=== PATIENT | male | born 1980 | race Caucasian/White ===

== ENCOUNTER 2020-01-25 18:06 | Emergency (ER) | payer SELFPAY ==
[~2020-01-25] VITALS: Ht 167.6 cm; Wt 81.6 kg
[2020-01-25] MEDS ORDERED: SODIUM CHLORIDE 0.9% 1000ML 1,000 ML ONE ×2 (18:25→20:08)
[2020-01-25] MEDS ORDERED: KETOROLAC TROMETHAMINE 30 MG/ML VIAL ONE (18:25)
[2020-01-25] MEDS ORDERED: ONDANSETRON HCL INJ 2MG/ML 2ML 2 MG/ML VIAL ONE ×4 (18:25→18:26)
--- NOTE | 2020-01-25 18:39 | Emergency Department Note ---
History of Present Illnes History of Present Illness Chief Complaint: flank pain History of Present Illness This is a 39 year old male, with a history of untreated hypertension, who prese nts with the onset of left back and left flank pain that started approximately 2:30 PM this afternoon, while patient was at work. Patient has also noted some hesitancy upon urination, and urinary frequency. He denies any dysuria or hematuria. He describes the pain as sharp, stabbing, and it was initially intermittent, but it has now become constant. Upon arrival to the ER. pt was h aving difficulty getting comfortable. He denies any fever or chills. His last dose of Tylenol was this afternoon. He has had no known sick contacts, no known contact with patients who have been diagnosed with Covid 19. Historian: Patient, Family Member (here with sisterjack, director of Med/Surg at [facility].) Arrival Mode: Car History limited by: condition of the patient Hay Sorter Required: No Onset (how long ago): hour(s) (3.5) Location: left back, radiating to the left flank; Radiation: Reports flank Context: Denies recent illness, Denies new medications Relieving factors: none Exacerbating factors: none Associated symptoms: Reports nausea/vomiting (nausea, without vomiting.); Denies confusion, Denies fever/chills, Denies loss of appetite, Denies shortness of breath, Denies weakness Treatments prior to arrival: none Risk factors: obseity, Past Medical/Family History Physician Review I have reviewed the patient's past medical and family history. Any updates have been documented here. Past Medical History Recent Fever: No Clinical Suspicion of Infectio: No New/Unexplained Change in Ment: No Past Medical History: Hypertension (not currently on any meds.) Past Surgical History: None Social History Smoking Cessation: Current every day smoker (1 ppd x 20 years;) Counseling Performed: Yes Any Illegal Drug Use: Yes (marijuana) TB Exposure/Symptoms: No Family History Family history of heart diseas: No Other Any Pre-Existing Lines (PICC,: No Is patient up to date on immun: No Review of Systems Review of Systems Constitutional: Denies chills, Denies fever Cardiovascular: Denies chest pain, Denies palpitations Respiratory: Reports no symptoms Gastrointestinal: Reports abdominal pain, Reports nausea; Denies diarrhea, Denies vomiting Genitourinary: Reports discharge Musculoskeletal: Reports back pain (left sided); Denies joint swelling, Denies muscle stiffness, Denies neck pain Integumentary: Denies change in color, Denies rash Neurological: Denies headache, Denies paresthesia Psychological: Reports no symptoms Endocrine: Reports no symptoms Hematological/Lymphatic: Reports no symptoms Review of other systems: All other systems negative Physical Exam Related Data Allergies: Coded Allergies: No Known Allergies (Unverified , 01/25/20) Vital signs reviewed: Yes Physical Exam CONSTITUTIONAL Constitutional: Present well-developed, Present well-nourished, Present obese, Present ill appearing HENT HENT: Present normocephalic, Present atraumatic, Present oropharynx clear/moist, Present nose normal HENT L/R: Present left ext ear normal, Present right ext ear normal EYES Eyes: Reports PERRL, Reports conjunctivae normal NECK Neck: Present ROM normal; Absent cervical adenopathy PULMONARY Pulmonary: Present effort normal, Present breath sounds normal CARDIOVASCULAR Cardiovascular: Present regular rhythm, Present heart sounds normal, Present capillary refill normal, Present normal rate GASTROINTESTINAL Abdominal: Present soft, Present nontender, Present bowel sounds normal; Absent left CVA tenderness GENITOURINARY Genitourinary: Present exam deferred SKIN Skin: Present warm, Present dry MUSCULOSKELETAL Musculoskeletal: Present ROM normal; Absent edema NEUROLOGICAL Neurological: Present alert, Present oriented x 3, Present no gross motor or sensory deficits PSYCHOLOGICAL Psychological: Present mood/affect normal, Present judgement normal Results Laboratory Laboratory CMP - nl except for K+ = 3.2, CL = 95, ALT/AST = 57/66 ; CBC - nl except for WBC = 10.7, H/H = 19.5/58.3; UA - trace blood; Lab results reviewed: Yes Imaging Imaging results reviewed: Yes Impressions [place] [address] Patient Name: TOMA BLOOM MR #: [id number] : 1980 Age/Sex: 39/M Req #: [id number] Adm Physician: Ordered by: JUSTIN STALLWORTH MD Report #: [id number] Location: [facility] Room/Bed: __ Procedure: [id number] HOPD/CT ABD/PEL WO CONTRAST-HOPD Exam Date: 01/25/20 Exam Time: 1915 REPORT STATUS: Signed EXAM: CT Abdomen and Pelvis WITHOUT contrast INDICATION: ^left flank pain ^20200125 ^1915 COMPARISON: None. TECHNIQUE: Abdomen and pelvis were scanned utilizing a multidetector helical scanner from the lung base to the pubic symphysis without administration of IV contrast. Absence of intravenous contrast decreases sensitivity for detection of focal lesions and vascular pathology. Coronal and sagittal reformations were obtained. Stone protocol is performed. IV CONTRAST: None ORAL CONTRAST: None COMPLICATIONS: None RADIATION DOSE: Total DLP: 1138 mGy*cm Estimated effective dose: (DLP x 0.015 x size factor) mSv CTDIvol has been reviewed. It is below the limits set by the Radiation Protocol Committee (RPC). Dose modulation, iterative reconstruction, and/or weight based adjustment of the mA/kV was utilized to reduce the radiation dose to as low as reasonably achievable. FINDINGS: LINES and TUBES: None. LOWER THORAX: Unremarkable HEPATOBILIARY: No focal hepatic lesions. No biliary ductal dilation. GALLBLADDER: Single calcified gallstone. No wall thickening. SPLEEN: No splenomegaly. PANCREAS: No focal masses or ductal dilatation. ADRENALS: No adrenal nodules KIDNEYS/URETERS: 6 mm stone within the left distal ureter just proximal to the UVJ. Mild left hydroureteronephrosis. Mild left perinephric inflammation. 2 cm right renal exophytic cyst. 2 cm right renal lower pole cortical cyst. No right renal calculus. GI TRACT: No abnormal distention, wall thickening, or evidence of bowel obstruction. Appendix is normal. PELVIC ORGANS/BLADDER: Unremarkable. LYMPH NODES: No lymphadenopathy. VESSELS: Unremarkable. PERITONEUM / RETROPERITONEUM: No free air or fluid. BONES: Unremarkable. SOFT TISSUES: Unremarkable. IMPRESSION: 1. A 6 mm left distal ureteral stone results in mild left hydroureteronephrosis and mild left perinephric inflammation. 2. Cholelithiasis. Signed by: Shona Frankel MD on 01/25/2020 7:51 PM Dictated By: SHONA FRANKEL MD 50 Transcribed By: MARY on 01/25/201950 COPY TO: JUSTIN STALLWORTH MD~ Diagnostics Tests Diagnostic test(s) reviewed: Yes Assessment & Plan Medical Decision Making MDM Drink at least 1 GALLON of WATER per day (128 oz) for the next several days, until the kidney stone passes. Strain the urine, every time you urinate, in an attempt to capture the stone. Take medications, as prescribed. Return to the ED, if you develop vomiting with inability to keep medications down, high fever, or intractable abdominal pain. Contact Urology, tomorrow, for a follow-up appointment this week, regarding the kidney stone and swollen left kidney. Take the stone with you, if you are able to retrieve it. Work on smoking cessation, and establish with a PCP, for further evaluation and management of any health issues, including uncontrolled hypertension, elevated red blood cell count (polycythemia) and elevated liver enzymes. Assessment & Plan Final Impression: (1) Nephrolithiasis (2) Hydronephrosis of left kidney (3) Left flank pain (4) Uncontrolled hypertension (5) Elevated liver function tests (6) Polycythemia (7) Nicotine dependence Depart Disposition: HOME, SELF-halfway Meds Active Scripts Acetaminophen With Codeine (TYLENOL WITH CODEINE #3 TABLET) 1 Each Tablet, 1-2 TAB PO Q6H PRN for pain, #20 TAB 0 Refills Prov:JUSTIN STALLWORTH MD 01/25/20 Promethazine Hcl (PROMETHAZINE HCL) 25 Mg Tablet, 25 MG PO Q6H PRN for nausea and vomiting, #20 TAB 0 Refills Prov:JUSTIN STALLWORTH MD 01/25/20 Ketorolac Tromethamine (TORADOL) 10 Mg Tablet, 1 TAB PO Q6H for pain for 5 Days, #20 TAB 0 Refills DO NOT take for more than 5 days. Prov:JUSTIN STALLWORTH MD 01/25/20 Tamsulosin Hcl* (FLOMAX*) 0.4 Mg Cap, 1 TAB PO DAILY for to help pass kidney stone, #30 CAP 0 Refills Prov:JUSTIN STALLWORTH MD 01/25/20 Ciprofloxacin Hcl (CIPRO) 500 Mg Tablet, 1 TAB PO BID for infection for 10 Days, #20 TAB 0 Refills Prov:JUSTIN STALLWORTH MD 01/25/20 Medications in the ED Ondansetron HCl 4 mg STK-MED ONCE .ROUTE ; Start 01/25/20 at 18:25; Stop 01/25/20 at 18:20; Status DC Ketorolac Tromethamine 30 mg STK-MED ONCE .ROUTE ; Start 01/25/20 at 18:25; Stop 01/25/20 at 18:20; Status DC Sodium Chloride 1,000 ml @ ud STK-MED ONCE .ROUTE ; Start 01/25/20 at 18:25; Stop 01/25/20 at 18:20; Status DC Ondansetron HCl 4 mg STK-MED ONCE .ROUTE ; Start 01/25/20 at 18:26; Stop 01/25/20 at 18:21; Status DC Ondansetron HCl 4 mg STK-MED ONCE .ROUTE ; Start 01/25/20 at 18:26; Stop 01/25/20 at 18:21; Status DC Ondansetron HCl 4 mg STK-MED ONCE .ROUTE ; Start 01/25/20 at 18:26; Stop 01/25/20 at 18:21; Status DC JUSTIN STALLWORTH MD Jan 25, 2020 18:39
[2020-01-25] MEDS ORDERED: MORPHINE SULFATE INJ 4 MG/ML INJ 1ML ONE (18:42)
[2020-01-25] MEDS ORDERED: KETOROLAC TROMETHAMINE 30 MG/ML VIAL IV STA (18:55)
[2020-01-25] MEDS ORDERED: SODIUM CHLORIDE 0.9% 1000ML 1,000 ML IV STA (18:55)
[2020-01-25] MEDS ORDERED: ONDANSETRON HCL INJ 2MG/ML 2ML 2 MG/ML VIAL IV STA (18:55)
[2020-01-25] MEDS ORDERED: MORPHINE SULFATE 2 MG/ML SYR 1ML IV STA (19:01)
--- NOTE | 2020-01-25 19:18 | NUR ---
REPORT GIVEN TO JUAN BERGERON
--- NOTE | 2020-01-25 19:54 | Diagnostic Imaging Report ---
EXAM: CT Abdomen and Pelvis WITHOUT contrast INDICATION: ^left flank pain ^20200125 ^1915 COMPARISON: None. TECHNIQUE: Abdomen and pelvis were scanned utilizing a multidetector helical scanner from the lung base to the pubic symphysis without administration of IV contrast. Absence of intravenous contrast decreases sensitivity for detection of focal lesions and vascular pathology. Coronal and sagittal reformations were obtained. Stone protocol is performed. IV CONTRAST: None ORAL CONTRAST: None COMPLICATIONS: None RADIATION DOSE: Total DLP: 1138 mGy*cm Estimated effective dose: (DLP x 0.015 x size factor) mSv CTDIvol has been reviewed. It is below the limits set by the Radiation Protocol Committee (RPC). Dose modulation, iterative reconstruction, and/or weight based adjustment of the mA/kV was utilized to reduce the radiation dose to as low as reasonably achievable. FINDINGS: LINES and TUBES: None. LOWER THORAX: Unremarkable HEPATOBILIARY: No focal hepatic lesions. No biliary ductal dilation. GALLBLADDER: Single calcified gallstone. No wall thickening. SPLEEN: No splenomegaly. PANCREAS: No focal masses or ductal dilatation. ADRENALS: No adrenal nodules KIDNEYS/URETERS: 6 mm stone within the left distal ureter just proximal to the UVJ. Mild left hydroureteronephrosis. Mild left perinephric inflammation. 2 cm right renal exophytic cyst. 2 cm right renal lower pole cortical cyst. No right renal calculus. GI TRACT: No abnormal distention, wall thickening, or evidence of bowel obstruction. Appendix is normal. PELVIC ORGANS/BLADDER: Unremarkable. LYMPH NODES: No lymphadenopathy. VESSELS: Unremarkable. PERITONEUM / RETROPERITONEUM: No free air or fluid. BONES: Unremarkable. SOFT TISSUES: Unremarkable. IMPRESSION: 1. A 6 mm left distal ureteral stone results in mild left hydroureteronephrosis and mild left perinephric inflammation. 2. Cholelithiasis. Signed by: Juan Luis Silva MD on 01/25/2020 7:51 PM
[2020-01-25] MEDS ORDERED: POTASSIUM CHLORIDE 10MEQ EA PO SCH (20:00)
[2020-01-25] MEDS ORDERED: SODIUM CHLORIDE 0.9% 1000ML 1,000 ML IV SCH (20:00)
[2020-01-25] MEDS ORDERED: POTASSIUM CHLORIDE 20 MEQ TAB CR PO ONE (20:08)
[2020-01-25] MEDS ORDERED: CEFTRIAXONE SOD 1 GM VIAL ONE (20:12)
[2020-01-25] MEDS ORDERED: CEFTRIAXONE SOD 1 GM/NS 50 ML 50 ML IV ONE (20:15)
[2020-01-25] MEDS ORDERED: HYDROCODONE/APAP 5MG-325MG TAB PO ONE (21:30)
[2020-01-25] MEDS ORDERED: HYDROCODONE/APAP 5MG-325MG TAB ONE (21:38)
[2020-01-25] MEDS ORDERED: CIPRO500 MG PO (23:43)
[2020-01-25] MEDS ORDERED: FLOMAX0.4 MG PO (23:44)
[2020-01-25] MEDS ORDERED: KETOROLAC TROME10 MG PO (23:46)
[2020-01-25] MEDS ORDERED: PROMETHAZINE HC25 M1 PO (23:47)
[2020-01-25] MEDS ORDERED: TYLENOL WITH C1 EACH PO (23:48)
== END 2020-01-25 21:45 | disposition home or self-care (01) ==
LOC: FSED 18:06
DX: N13.2 Hydronephrosis with renal and ureteral calculous obstruction (principal); M54.5 Low back pain; I10 Essential (primary) hypertension; D75.1 Secondary polycythemia; R94.5 Abnormal results of liver function studies; F17.210 Nicotine dependence, cigarettes, uncomplicated
CPT/HCPCS: 74176; 80053; 81003; 85025; 96374; 96375; 96376; 99284; J0696; J1885; J2270 ×2; J2405; J7030